=== PATIENT | male | born 1995 | race Caucasian/White ===

== ENCOUNTER 2021-07-08 05:37 | Emergency (ER) | payer OTHER ==
[2021-07-08 06:35] LABS: RED BLOOD COUNT 4.69 M/UL (4.20-5.50); WHITE BLOOD COUNT 24.3 K/UL (4.5-11.0)
[2021-07-08 06:36] LABS: BUN/CREATININE RATIO 17 (0-10)
== END 2021-07-08 07:30 ==
LOC: ER1 05:37
PROVIDERS: Emergency Medicine
DX: S32.402A Unspecified fracture of left acetabulum, initial encounter for closed fracture (principal); S32.502A Unspecified fracture of left pubis, initial encounter for closed fracture; V49.9XXA Car occupant (driver) (passenger) injured in unspecified traffic accident, initial encounter
CPT/HCPCS: 70450; 71045; 71260; 72125; 72170; 80053; 82550; 82553; 83605; 83874; 84484; 85025; 85610; 85730; 86850; 86900; 86901; 86920; 93005; 99284; J2270; J2405; J3010; Q9967